=== PATIENT | female | born 1945 | race Caucasian/White ===

== ENCOUNTER → 2020-09-14 08:24 | Outpatient (BNVA) | payer SELFPAY | PROVIDERS: Visit Provider Orthopaedic Surgery | DX: M16.11 Unilateral primary osteoarthritis, right hip (principal) | CPT/HCPCS: 73502 ==

== ENCOUNTER → 2020-10-06 06:31 | Day surgery (SDC) | payer SELFPAY | PROVIDERS: Visit Provider Orthopaedic Surgery | DX: Z01.818 Encounter for other preprocedural examination (principal); M16.11 Unilateral primary osteoarthritis, right hip | CPT/HCPCS: 93005 ==

== ENCOUNTER → 2020-10-06 10:07 | Outpatient (BNVA) | payer SELFPAY | PROVIDERS: Visit Provider Orthopaedic Surgery | DX: Z01.818 Encounter for other preprocedural examination (principal); Z20.822 Contact with and (suspected) exposure to COVID-19 | CPT/HCPCS: 87635 ==

== ENCOUNTER 2020-10-13 15:10 | Observation (INO) | payer MEDICARE, SELFPAY ==
--- NOTE | 2020-10-06 09:08 | ECG_ITS ---
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 Measurements Intervals [place] Rate: 70 P: 15 VA: 185 QRS: 5 QRSD: 81 T: -1 QT: 345 QTc: 372 Interpretive Statements SINUS RHYTHM No previous ECG available for comparison Electronically Signed On 10-07-2020 10:03:18 CDT by Felix Gardner M.D. [id number]
[2020-10-06 09:13] VITALS: BMI 30.2
--- NOTE | 2020-10-06 10:24 | ANES.PREANE2 ---
Pre-Anesthetic Assessment Pre-Anesthetic Assessment: Height/Weight: Height 1.52 m Weight 70.307 kg Proposed Procedure: Operation Date: 10/12/20 10:50 Proposed Procedures p Total Hip Arthroplasty(Right) - Julius Rob MD Was Beta Philip taken within 24 hours: N/A Was Clonidine taken within 24 hours: N/A Social: Social History: No alcohol and No tobacco Exam: Pre-Anes Outpt Exam: alert, oriented x 3, clear to auscultation bilaterally and regular rate & rhythm Airway: Submandibular: WNL Cervical ROM: WNL MP: 2 Dentition: Full History/ROS: No significant history except as noted Musc/skel: Musc/skel: OA/DJD Anesthetic Plan: ASA status: 2 Anesthesia: Regional (specify below) (SAB) Risk of > 500 ml blood loss (7ml/kg in children): No PFSH Anesthesia PFSH: Social History (Updated 09/14/20 @ 08:35 by Leoncio Rose LPN) Smoking and tobacco status: never smoked Alcohol intake: never Data Anesthesia Cardiac Studies: No Data to Display
[2020-10-13] VITALS (19 sets, daily range): BP systolic 114–169; BP diastolic 65–103; PULSE 56–86; RESP 14–20; TEMP 36.2–37.3; O2SAT 92–100
--- NOTE | 2020-10-13 12:11 | ANES.PAUD2 ---
Pre-Anesthetic Update Pre-Anesthetic Assessment: Date of Surgery/Procedure: 10/13/20 Proposed Procedure: Operation Date: 10/13/20 12:10 Proposed Procedures p Total Hip Arthroplasty(Right) - Julius Rob MD Any changes to Pre-Anesthetic Assessment?: No Last Intake: Intake Last Liquid Date 10/12/20 Last Liquid Time 23:00 Last Solid Date 10/12/20 Last Solid Time 19:00 Vitals: Temperature 97.7 F 10/13/20 11:18 Temperature Source Temporal Artery S can 10/13/20 11:18 Pulse Rate 79 10/13/20 11:18 Pulse Rhythm 10/13/20 11:18 Pulse Strength 3+ Normal 10/13/20 11:18 Respiratory Rate 18 10/13/20 11:18 Blood Pressure 169/103 10/13/20 11:18 Blood Pressure Nishi n 125 10/13/20 11:18 Pulse Oximetry 92 10/13/20 11:18 Oxygen Delivery Me thod 10/13/20 11:18 Exam: Pre-Anes Outpt Exam: alert, oriented x 3, clear to auscultation bilaterally and regular rate & rhythm Cardiac Studies: No Data to Display
--- NOTE | 2020-10-13 13:03 | W.PM.OPSUD ---
Surgery/Procedure H&P Update DATE OF PROCEDURE: October 13, 2020 PLANNED PROCEDURE: Operation Date: 10/13/20 12:10 Proposed Procedures p Total Hip Arthroplasty(Right) - Julius Rob MD
--- NOTE | 2020-10-13 13:04 | W.PM.OPSUD ---
Surgery/Procedure H&P Update DATE OF PROCEDURE: October 13, 2020 DATE H&P PERFORMED: 09/14/20 PLANNED PROCEDURE: Operation Date: 10/13/20 12:10 Proposed Procedures p Total Hip Arthroplasty(Right) - Julius Rob MD
[2020-10-13] MEDS: sodium chloride 0.9% 1,000 ML 30 ML IV (13:11)
[2020-10-13] MEDS: CELEcoxib 200 mg Capsule 400 MG PO ×2 (13:17)
[2020-10-13] MEDS: gabapentin 300 mg Capsule PO ×2 (13:17→18:10)
[2020-10-13] MEDS: oxyCODONE 20 mg ER (12 HR) Tablet PO (13:18)
[2020-10-13] MEDS: acetaminophen 500 mg Tablet 1000 MG PO ×2 (13:18→21:10)
[2020-10-13] MEDS: tranexamic acid 1,000 mg/10mL SDV 1000 MG IRRIGATION (14:22)
--- NOTE | 2020-10-13 15:23 | XRR_ITS ---
PROCEDURE INFORMATION: Exam: XR Pelvis Exam date and time: 10/13/2020 3:26 PM Age: 75 years old Clinical indication: Device placement; Other: R priya; Prior surgery; Surgery date: Post-operative (0-2 days) TECHNIQUE: Imaging protocol: XR pelvis. Views: 1 or 2 view. COMPARISON: CR XR hip RT 2-3V wo/w pel* [id number] 09/14/2020 8:29 AM FINDINGS: Bones/joints: Bilateral hip arthroplasty alignment is unremarkable. Negative for periprosthetic fracture. Diffuse osseous demineralization. No lytic bone lesion. No widening of pubic symphysis. No focal bone erosion. Soft tissues: Unremarkable. XR/XR pelvis 1-2V* [id number] IMPRESSION: Unremarkable appearance of hip arthroplasty.
--- NOTE | 2020-10-13 15:25 | PM.OP ---
Operative Report Date of procedure: October 13, 2020 Pre-op Diagnosis: Osteoarthritis right hip Post-op diagnosis: same Post-op Findings: Same Procedure Done: Right total hip arthroplasty Implants: 1) Jus 58 mm ADM acetabular shell 2) Size 7 Jus SecureFit Max stem 3} 28 mm -2.5 mm femoral head 4} Restorationa ADM X3 insert Pathology: none sent Surgeon: Julius Rob Anesthesia: Nerve Block (Spinal) Estimated blood loss (mL): 100 Findings: The patient had severe degenerative changes of the right hip Condition: stable Disposition: PACU Procedure: The patient was taken to the operating room and anesthesia provided by the anesthesia service. The patient was placed in the lateral position on a beanbag. A timeout was performed. The patient was draped in the usual fashion. A 15 cm long incision was made beginning just proximal to the greater trochanter and extending posteriorly to a point just distal to the trochanter on the posterior border of the trochanter. Dissection was carried down with electrocautery through the subcutaneous fat to the fascia sadaf which was divided proximally and distally with curved scissors. The anterior two thirds of the gluteus medius and minimus were elevated off the hip with electrocautery. The capsule was divided in a H-like fashion. The hip was dislocated and a neck cut made just above the level of the lesser trochanter. Exposure of the acetabulum was facilitated with the acetabular retractors. Remnants of labrum and peripheral osteophytes were removed with electrocautery and a rongeur. A reamer 2 mm under the size the femoral head was utilized to ream medially to the base of the palm and are. Reaming was then increased in 1 mm intervals until a healthy rim a trabecular bone was encountered. A trial ADM cup was placed and its position marked with electrocautery In the acetabulum. A final was press-fit into place. Attention was then focused on the femur. Sequential reaming was done under power until cortical chatter was encountered. Broaching was then accomplished until a stable broach size was obtained. A trial reduction with the head and neck provided excellent stability. The wound was irrigated with saline and antibiotic solution. The final Jus SecureFit Max stem was press-fit into place. The femoral head was placed and the hip was reduced. The hip was brought through range of motion and found to be free of impingement and stable. The anterior capsule was reapproximated with 1 Ethibond. The gluteus medius and minimus were repaired through bone with 5 Ethibond and reinforced with 1 Ethibond. The fascial sadaf was closed with a running 0 Stratafix suture. Deep pelvic tissues were closed with 2-0 Stratafix and the skin with a running 4-0 l Stratafix.
--- NOTE | 2020-10-13 15:40 | P.PCN_ITS ---
PACU note PACU note: VSS, Good respiratory effort, report to MANAGER BANQUET Post-Anesthesia Exam: awake
--- NOTE | 2020-10-13 15:40 | PM.PACU ---
PACU note PACU note: VSS, Good respiratory effort, report to AIR POLLUTION CONTROL ENGINEER Post-Anesthesia Exam: awake
--- NOTE | 2020-10-13 16:02 | SUR.PHASEI ---
PT IS AWAKE ALERT TALKATIVE DENIES PAIN AND NAUSEA, SPIINAL ANESTHESIA AT T12 OR LOWER PER PT VERBALIZATION OF NORMAL SENSATION. PT UNABLE TO MOVE FEET AND LEGS, HOB ELEVATED NOW TO 20 DEGREES, BP STABEL AT 147/83, PT ON RA HOLDING PT TO GIVE REPORT TO THE FLOOR.
--- NOTE | 2020-10-13 18:07 | ANE.PACU2 ---
Inpatient post-anesthesia follow up: Airway intact: Yes Vital signs: Temperature 98.6 F Pulse Rate 78 Respiratory Rate 17 Blood Pressure 145/78 Pulse Oximetry 95 Oxygen Delivery Me thod Room Air Oxygen Flow Rate Fraction of Inspir ed Oxygen Hydration adequate: Yes Nausea and vomiting: No Pain level: 2 Mental status: Baseline
[2020-10-13] MEDS: sennosides-docusate Tablet 2 TAB PO (18:09)
[2020-10-13] MEDS: oxyCODONE 5 mg IR Tab/Cap PO ×2 (18:10→23:22)
[2020-10-13] MEDS: CELEcoxib 200 mg Capsule PO (23:22)
[2020-10-14] MEDS: sodium chloride 0.9% 1,000 ML 100 ML IV (01:20)
[2020-10-14 02:47] LABS: Hemoglobin 11.1 g/dL (11.5-15.3)
[2020-10-14 04:00] VITALS: BP 127/67; PULSE 71; RESP 18; TEMP 36.3; O2SAT 90
[2020-10-14] MEDS: acetaminophen 500 mg Tablet 1000 MG PO ×2 (06:05→12:35)
[2020-10-14 08:00] VITALS: BP 134/68; PULSE 88; RESP 22; TEMP 36.8; O2SAT 95
--- NOTE | 2020-10-14 08:09 | PM.DCS ---
Discharge Providers Date of Admission: 10/13/20 15:10 Date of Discharge: October 14, 2020 Attending Provider at Admission: Julius Rob MD Attending Provider at Discharge: Julius Rob MD Diagnoses at Discharge Discharge Diagnosis (1) Status post right hip replacement: Status: Acute (2) Osteoarthritis of right hip: Status: Resolved Reason for Visit Reason for Visit: primary osteoarthrtis Hospital Course Hospital Course The patient is a 75-year-old female who underwent elective right total hip arthroplasty on 10/13/2020. He tolerated the procedure well. Her pain was well controlled by the first postoperative day. She was fully ambulatory with therapy and discharged home on the first postoperative day. She was managed with aspirin and sequential compression dressings for DVT prophylaxis. She remained hemodynamically stable. Physical Exam Narrative: EXAM NARRATIVE: On the day of discharge the hip incision was clean. The incision was free of drainage. They had no particular swelling about the thigh or distal. No distal neurovascular deficits were noted. Urinary Catheter Management^: Redman: Cath Placed During This Visit: yes, but has since been removed by the nurse Reason for Continuing Indwelling Catheter: Required Immobilization for Trauma or Surgery or Anesthesia Urinary Catheter Date of Insertion: 10/13/20 Urinary Catheter Time of Insertion: 13:45 Date Urinary Catheter Removed: 10/14/20 Time Urinary Catheter Discontinued: 06:26 Discharge Data Data Completed and Pending: Completed Studies During Hospitalization Category Date Time Status XR pelvis 1-2V* 7 2170 Stat Exams 10/13/20 15:23 Completed Labs from last 24 hours 10/14/20 01:56 Hgb 11.1 L Vitals: Last Vital Signs Temp 97.3 F L 10/14/20 04:00 Pulse 71 10/14/20 04:00 Resp 18 10/14/20 04:00 BP 127/67 10/14/20 04:00 Pulse Ox 90 10/14/20 04:00 Discharge Plan Discharge Patient Disposition: Home Condition: Stable Prescriptions: New oxycodone 5 mg Tablet 5 mg PO Q1H PRN (Reason: Moderate Pain) 7 Days Qty: 3 RF: 0 gabapentin 300 mg Capsule 300 mg PO BID 7 Days Qty: 14 RF: 0 acetaminophen 500 mg Tablet 1,000 mg PO Q8H 14 Days Qty: 84 RF: 0 aspirin 325 mg Tablet,Delayed Release (Dr/Ec) 325 mg PO DAILY 30 Days Qty: 30 RF: 0 celecoxib 200 mg Capsule 200 mg PO Q12H 14 Days Qty: 28 RF: 0 Discontinued acetaminophen 500 mg Tablet 500 mg PO QID PRN (Reason: Pain) RF: 0 Discharge Orders: Discharge Order (Routine); Ordered 10/14/20 Ordered By: Julius Rob Referrals: Julius Rob MD [Physician] - 2 weeks Discharge Diet: Advance as tolerated Discharge Activity: Limit activity as instructed Patient Instructions: Opioid Safety Activity Restrictions/Additional Instructions: Okay to shower. No soaking incision in tub Apply FirstIce up to 20 min/hr for pain and swelling Take Celebrex twice a day for the next 15 days for pain , discontinue other anti-inflammatories Take Neurontin twice a day for 7 days. Take Tylenol 500mg (up to 2 tabs) 3 times a day for mild pain take oxycodone for breakthrough pain. Exercises per physical therapy. May weight-bear as tolerated on total hip arthroplasty Discharge Attestations Time Spent in Discharge Care*: other Quality Metrics Clinical Quality Measures During this hospital stay, did patient experience: None Coding Level of Care Code [facility] note Diagnoses Status post right hip replacement Z96.641 Osteoarthritis of right hip M16.11
[2020-10-14 08:12] VITALS: RESP 18
[2020-10-14] MEDS: oxyCODONE 5 mg IR Tab/Cap PO (08:12)
[2020-10-14] MEDS: sennosides-docusate Tablet 2 TAB PO (08:12)
[2020-10-14] MEDS: gabapentin 300 mg Capsule PO (08:13)
[2020-10-14] MEDS: aspirin 325 mg EC Tablet PO (08:13)
[2020-10-14] MEDS: CELEcoxib 200 mg Capsule PO (10:14)
[2020-10-14 10:56] LABS: Glucose Point of Care 119 mg/dL (70-110)
[2020-10-14 12:00] VITALS: BP 101/52; PULSE 69; RESP 20; TEMP 36.4; O2SAT 98
[2020-10-14 13:58] VITALS: BP 101/52; PULSE 69; RESP 20; TEMP 36.4; O2SAT 98
== END 2020-10-14 14:41 | disposition home or self-care (01) ==
LOC: MEDSURG 15:10
PROVIDERS: Admitting Provider Orthopaedic Surgery; Visit Provider Orthopaedic Surgery
PROC: (CPT 27130; principal; 2020-10-13 11:50)
DX: M16.11 Unilateral primary osteoarthritis, right hip (principal)
CPT/HCPCS: 27130; 36415; 36416; 51702; 72170; 82962; 85018; 97110; 97116; 97161; 97165; 97530; C1776; G0378; J0690; J1580; J2250; J2704; J3010; J7030

== ENCOUNTER → 2020-11-23 13:37 | Outpatient (BNVA) | payer SELFPAY | PROVIDERS: Visit Provider Orthopaedic Surgery | DX: M17.11 Unilateral primary osteoarthritis, right knee (principal); Z96.641 Presence of right artificial hip joint; Z47.89 Encounter for other orthopedic aftercare | CPT/HCPCS: 73502 ==

== ENCOUNTER → 2021-04-07 10:23 | Outpatient (BNVA) | payer SELFPAY | PROVIDERS: Visit Provider Orthopaedic Surgery | DX: Z47.1 Aftercare following joint replacement surgery (principal); Z96.641 Presence of right artificial hip joint | CPT/HCPCS: 73502; 73560; 73565 ==

== ENCOUNTER 2023-03-08 10:24 | Outpatient (RCR) | payer SELFPAY | END 2023-04-04 23:59 | disposition home or self-care (01) | LOC: SPT 10:24 | PROVIDERS: PCP Obstetrics & Gynecology; Visit Provider Obstetrics & Gynecology | DX: N39.41 Urge incontinence (principal); N39.3 Stress incontinence (female) (male) | CPT/HCPCS: 97110; 97161; 97530 ==

== ENCOUNTER 2023-04-05 06:00 | Outpatient (RCR) | payer SELFPAY | END 2023-05-04 23:59 | disposition home or self-care (01) | LOC: SPT 06:00 | PROVIDERS: PCP Obstetrics & Gynecology; Visit Provider Obstetrics & Gynecology | DX: N39.41 Urge incontinence (principal); N39.3 Stress incontinence (female) (male) | CPT/HCPCS: 97110; 97530 ==